=== PATIENT | female | born 1955 | race African-American/Black ===

== ENCOUNTER 2016-04-23 13:35 | Inpatient (IN) | payer OTHER ==
[2016-04-23 13:46] VITALS: TEMP 98.3; BMI 22.8
[2016-04-23] MEDS ORDERED: LABETALOL HCL 5 MG/1 ML (100MG/20 ML VIAL) IVPUSH ONE (18:22)
[2016-04-23 18:34] LABS: BASOPHIL 0.8 % (0-2.0); EOSINOPHIL 4.7 % (0-4.5); MCHC 33.3 g/dl (32.0-36.0); MEAN PLT VOLUME 9.4 fl (7.5-11.1); NEUTROPHILS 28.9 % (42.8-82.8); PLATELET COUNT 194 K/MM3 (134-434); RDW 16.2 % (11.6-15.6); WHITE BLOOD COUNT 6.5 K/mm3 (4.0-10.0)
--- NOTE | 2016-04-23 18:34 | PDOC ---
History of Present Illness - General Chief Complaint: Headache Stated Complaint: HEADACHE Time Seen by Provider: 04/23/16 18:10 - History of Present Illness Initial Comments: 04/23/16 19:24 the patient is a 61-year-old female with a past medical history of hypertension presenting to the emergency room today complaining of headache. Triage reports the patient's blood pressure of 210/120. Patient states that her headache has been going on for 3 days now. It is getting worse in intensity. She rates the pain a 10 out of 10. The pain is located in the right hemisphere. The pain does not radiate. She describes the pain as a dull constant pressure.Patient states she's been having similar episodes of headache over the past 3 months. She's been seeing her primary care physician for this issue. Pt. is compliant with her blood pressure medication. Patient also admits to lightheadedness. Denies photophobia, photophobia, little dizziness,weakness, fevers chills, cough, rhinorrhea, chest pain, palpitations, edema, shortness of breath, nausea, vomiting, diarrhea. Past History - Past Medical History Allergies/Adverse Reactions: Allergies Allergy/AdvReac Type Severity Reaction Status Date / Time No Known Allergies Allergy Verified 03/04/16 20:45 Home Medications: Ambulatory Orders Nadolol 20 mg PO DAILY 02/06/16 HTN: Yes Hypercholesterolemia: Yes Suicide Attempt (Hx): No - Immunization History Immunization Up to Date: Yes - Psycho/Social/Smoking Cessation Hx Anxiety: No Suicidal Ideation: No Smoking History: Never smoked Hx Alcohol Use: No Drug/Substance Use Hx: No Substance Use Type: None *Physical Exam - Vital Signs Last Vital Signs Temp Pulse Resp BP Pulse Ox 98.3 F 66 16 198/104 97 04/23/16 13:43 04/23/16 17:37 04/23/16 17:37 04/23/16 17:37 04/23/16 17:37 - Physical Exam Comments: 04/23/16 19:29 GENERAL: Well developed, well nourished. Awake and alert. No acute distress. HEENT: Normocephalic, atraumatic. PERRLA, EOMI. No conjunctival pallor. Sclera are non- icteric. Moist mucous membranes. Oropharynx is clear. NECK: Supple. Full ROM. No JVD. Carotid pulses 2+ and symmetric, without bruits. No thyromegaly. No lymphadenopathy. CARDIOVASCULAR: Regular rate and rhythm. No murmurs, rubs, or gallops. Distal pulses are 2+ and symmetric. PULMONARY: No evidence of respiratory distress. Lungs clear to auscultation bilaterally. No wheezing, rales or rhonchi. ABDOMINAL: Soft. Non-tender. Non-distended. No rebound or guarding. No organomegaly. Normoactive bowel sounds. MUSCULOSKELETAL Normal range of motion at all joints. No bony deformities or tenderness. No CVA tenderness. EXTREMITIES: No cyanosis. No clubbing. No edema. No calf tenderness. SKIN: Warm and dry. Normal capillary refill. No rashes. No jaundice. NEUROLOGICAL: Alert, awake, appropriate. Cranial nerves 2-12 intact. No deficits to light touch and temperature in face, upper extremities and lower extremities. No motor deficits in the in face, upper extremities and lower extremities. Normoreflexic in the upper and lower extremities. Normal speech. Toes are down- going bilaterally. Gait is normal without ataxia. Point to point movement intact , negative rhombergs sign. PSYCHIATRIC: Cooperative. Good eye contact. Appropriate mood and affect. ED Treatment Course - LABORATORY CBC & Chemistry Diagram: 04/23/16 18:27 04/23/16 18:27 Medical Decision Making - Medical Decision Making 04/23/16 18:30 patient is a 61-year-old female with past medical history of hypertension presenting with headache. The patient's blood pressure was markedly elevated at presentation. We will order basic labs EKG telemetry to monitor blood pressure Pulse rate is 66. We will give IV labetalol for blood pressure management. Once blood pressure is controlled will send patient for CT scan. Less likely meningitis as this issue has been occuring for months, the pt is afelbrile, as well as lack of kernigs and brudinski signs. 1. CBC CMP AND UA for infection 2. EKG and telemetry for monitoring ofpulse and to look for possible arrhythmia. 3. Will order CThead without contrast to evaluate for bleed. we'll reevaluate 04/23/16 18:50 IV labetalol was administered. Repeat blood pressure was 150/78. Patient reports headache is now a 6 out of 10. Patient is feeling better. We'll continue to monitor. 04/23/16 19:45 Pt was signed out or BILLY thomas. Case was discussed. CT results and monitor blood pressure then dispo. *DC/Admit/Observation/Transfer Diagnosis at time of Disposition: Headache Qualifiers: Headache type: unspecified Headache chronicity pattern: chronic headache Intractability: not intractable Qualified Code(s): R51 - Headache High blood pressure Qualifiers: Hypertension type: essential hypertension Qualified Code(s): I10 - Essential ( primary) hypertension - Discharge Dispostion Disposition: HOME Condition at time of disposition: Stable Admit: No
[2016-04-23] MEDS ORDERED: LABETALOL HCL 5 MG/1 ML (200MG/40ML VIAL) IVPB ONE (18:41)
--- NOTE | 2016-04-23 19:00 | PDOC ---
*Physical Exam - Vital Signs Last Vital Signs Temp Pulse Resp BP Pulse Ox 98.3 F 61 18 150/72 98 04/23/16 18:46 04/23/16 18:52 04/23/16 18:52 04/23/16 18:52 04/23/16 18:52 Heart Score/ECG Review - ECG Impressions Comment:: 04/23/16 18:59 Twelve-lead EKG was performed and reviewed by me. There is normal sinus rhythm with a normal rate. Rate of 66 LVH Nonspecific T wave abnormality ED Treatment Course - LABORATORY CBC & Chemistry Diagram: 04/23/16 18:27 04/23/16 18:27 - Medications Given in the ED: ED Medications Discontinued Medications Generic Name Dose Route Start Last Admin Trade Name Freq PRN Reason Stop Dose Admin Labetalol HCl 20 mg 04/23/16 18:22 04/23/16 18:44 Normodyne Injection - IVPUSH 04/23/16 18:23 20 mg ONCE ONE Administration Medical Decision Making - Medical Decision Making 04/23/16 19:00 61y F hx of htn, presents with headache, it was gradual onset x 3 days that is located on the right described as pressure like, and nonradiating that is similar in nature to previous headaches without associated vision changes, photophobia, n/v, neck stiffness. Pts exam is unremarkable. and pts headache was improved significantly during her stay in the ER. Awaiting diagnostics, if pt feeling improved will dc the pt with pmd fu The patient was seen and evaluated in conjunction with ANANTH Smith under my direct supervision, ancillary studies were reviewed. I independently interviewed and evaluated the patient and I agree with the plan as outlined by ANANTH Smith. *DC/Admit/Observation/Transfer Diagnosis at time of Disposition: Headache, High blood pressure - Discharge Dispostion Disposition: HOME Condition at time of disposition: Stable
[2016-04-23 19:11] LABS: ALBUMIN 4.2 g/dl (3.4-5.0); ALK PHOS 63 U/L (45-117); ANION GAP 6 (8-16); BILIRUBIN,TOTAL 0.7 mg/dL (0.2-1.0); CALCIUM 9.6 mg/dL (8.5-10.1); CO2 30 mmol/L (21-32); CREATININE 0.8 mg/dL (0.55-1.02); GLUCOSE,RANDOM 100 mg/dL (74-106); SGOT/AST 27 U/L (15-37); SGPT/ALT 24 U/L (12-78); TOT PROT 8.1 g/dl (6.4-8.2)
[2016-04-23 19:14] LABS: TROPONIN I < 0.02 ng/ml (0.00-0.05)
[2016-04-23 19:35] LABS: URINE APPEARANCE CLEAR; URINE BILIRUBIN NEGATIVE (NEGATIVE); URINE BLOOD 1+ (NEGATIVE); URINE COLOR COLORLESS; URINE GLUCOSE (UA) NEGATIVE (NEGATIVE); URINE KETONE NEGATIVE (NEGATIVE); URINE LEUK ESTERASE NEGATIVE (NEGATIVE); URINE NITRITE NEGATIVE (NEGATIVE); URINE PROTEIN NEGATIVE (NEGATIVE); URINE UROBILINOGEN NEGATIVE E.U./dl (0.2-1.0)
[2016-04-23 19:40] LABS: URINE WBC 1 /hpf (3-5)
[2016-04-23 20:18] VITALS: BP 141/85; PULSE 60
--- NOTE | 2016-04-23 20:37 | PDOC ---
*Physical Exam - Vital Signs Last Vital Signs Temp Pulse Resp BP Pulse Ox 98.3 F 60 18 141/85 97 04/23/16 18:46 04/23/16 20:17 04/23/16 20:17 04/23/16 20:17 04/23/16 20:17 ED Treatment Course - LABORATORY CBC & Chemistry Diagram: 04/23/16 18:27 04/23/16 18:27 - ADDITIONAL ORDERS Additional order review: Laboratory Results 04/23/16 04/23/16 04/23/16 19:00 18:27 18:27 Sodium 140 Potassium 4.6 Chloride 104 Carbon Dioxide 30 Anion Gap 6 L BUN 17 Creatinine 0.8 Creat Clearance w eGFR > 60 Random Glucose 100 D Calcium 9.6 Total Bilirubin 0.7 AST 27 ALT 24 Alkaline Phosphatase 63 Creatine Kinase 314 H D CK-MB (CK-2) 2.464 Troponin I < 0.02 Total Protein 8.1 Albumin 4.2 Urine Color Colorless Urine Appearance Clear Urine pH 7.0 D Ur Specific [place] 1.003 Urine Protein Negative Urine Glucose (UA) Negative Urine Ketones Negative Urine Blood 1+ H Urine Nitrite Negative Urine Bilirubin Negative Urine Urobilinogen Negative Ur Leukocyte Esterase Negative Urine RBC None Urine WBC 1 Ur Epithelial Cells Rare 04/23/16 18:27 RBC 4.88 MCV 87.0 MCHC 33.3 RDW 16.2 H MPV 9.4 D Neutrophils % 28.9 L D Lymphocytes % 57.4 H D Monocytes % 8.2 Eosinophils % 4.7 H D Basophils % 0.8 D - Medications Given in the ED: ED Medications Discontinued Medications Generic Name Dose Route Start Last Admin Trade Name Sara PRN Reason Stop Dose Admin Labetalol HCl 20 mg 04/23/16 18:22 04/23/16 18:44 Normodyne Injection - IVPUSH 04/23/16 18:23 20 mg ONCE ONE Administration Medical Decision Making - Medical Decision Making 04/23/16 20:35 patient endorsed to me by people PA to follow CT scan, pain, and disposition. Patient seen and evaluated still complains of 5/10. I will give Toradol and reglan. Head CT reviewed and is negative for pathology 04/23/16 22:33 patient's pain is resolved I will discharge her and instructions follow-up with PMD for continued management I discussed the physical exam findings, ancillary test results and final diagnoses with the patient. I answered all of the patient's questions. The patient was satisfied with the care received and felt comfortable with the discharge plan and treatment plan. The Patient agrees to follow up with the primary care physician within 24-72 hours. *DC/Admit/Observation/Transfer Diagnosis at time of Disposition: Headache Qualifiers: Headache type: unspecified Headache chronicity pattern: chronic headache Intractability: not intractable Qualified Code(s): R51 - Headache High blood pressure Qualifiers: Hypertension type: essential hypertension Qualified Code(s): I10 - Essential ( primary) hypertension Diagnosis at time of Disposition: (Ruled Out): Acute pyelonephritis, Renal colic on right side - Discharge Dispostion Condition at time of disposition: Stable Admit: No - Referrals Referrals: Nelda Rodarte MD [Primary Care Provider] - - Patient Instructions Printed Discharge Instructions: DI for Migraine Additional Instructions: Your Discharge Instructions: You must call primary care physician within 24 hours to arrange follow-up. Return to the Emergency Department with any new, persistent or worsening symptoms, for fever, chills, SOB, dizziness or any other concerning changes that may occur.
[2016-04-23] MEDS ORDERED: SODIUM CHLORIDE 0.9% 1000 ML INFUS.BAG IV ONE (20:38)
[2016-04-23] MEDS ORDERED: METOCLOPRAMIDE HCL INJECTION 10 MG/2 ML VIAL IVPB ONE (20:38)
[2016-04-23] MEDS ORDERED: KETOROLAC TROMETHAMINE 15 MG/ML VIAL IVPUSH ONE (20:38)
[2016-04-23] MEDS ORDERED: METOCLOPRAMIDE HCL INJECTION 10 MG/2 ML VIAL ONE (20:44)
[2016-04-23] MEDS ORDERED: KETOROLAC TROMETHAMINE 15 MG/ML VIAL ONE (20:44)
--- NOTE | 2016-04-25 16:15 | EKG ---
Test Reason : Blood Pressure : / mmHG Vent. Rate : 065 BPM Atrial Rate : 065 BPM P-R Int : 134 ms QRS Dur : 082 ms QT Int : 396 ms P-R-T Axes : 054 017 -09 degrees QTc Int : 411 ms NORMAL SINUS RHYTHM MODERATE VOLTAGE CRITERIA FOR LVH, MAY BE NORMAL VARIANT NONSPECIFIC T WAVE ABNORMALITY ABNORMAL ECG WHEN COMPARED WITH ECG OF 04-MAR-2016 22:09, NO SIGNIFICANT CHANGE WAS FOUND Confirmed by AYUSH HERNANDEZ, SUNSHINE ([id number]) on 04/25/2016 4:15:37 PM Referred By: Confirmed By:SUNSHINE PEACOCK MD
== END 2016-04-24 00:08 | disposition home or self-care (01) | DRG 199 ==
LOC: JER 13:35 → JERBED 22:37 → J5S 04-24 09:45 → JERBED 04-24 09:45
PROVIDERS: ADMIT Internal Medicine; ATTEND Internal Medicine
DX: I10 Essential (primary) hypertension (principal); R51 Headache; N10 Acute pyelonephritis; N23 Unspecified renal colic
CPT/HCPCS: 36415; 70450-TC; 71010-TC; 80053; 81003; 81015; 82550; 82553; 84484; 85025; 93005; 93010; 99284-25

== ENCOUNTER 2019-03-10 11:22 | Emergency (ER) | payer OTHER ==
[2019-03-10 11:27] VITALS: BP 174/97; PULSE 93; TEMP 98.6; BMI 18.0
[2019-03-10] MEDS ORDERED: CODEINE SO4 30 MG TABLET PO ONE (12:07)
--- NOTE | 2019-03-10 12:11 | PDOC ---
History of Present Illness - General Chief Complaint: Respiratory Stated Complaint: COLD SYMPTOMS Time Seen by Provider: 03/10/19 11:41 History Source: Patient Exam Limitations: No Limitations - History of Present Illness Initial Comments: 03/10/19 12:08 HISTORY OF PRESENT ILLNESS: This is a 64-year-old woman with past medical history of hypertension who presents emergency department for evaluation of 4 days of dry nonproductive cough and subjective fevers. Patient reports increased abdominal pain which worsens with coughing which she describes as a soreness while at rest. Pain is currently 6/10. Patient reports the pain is bandlike extending to her lower back. She denies any chest pain or shortness of breath. No recent travel or sick contacts. PAST MEDICAL HISTORY: Hypertension SURGICAL HISTORY: Denies ALLERGIES: Pneumococcal vaccine, influenza vaccine REVIEW OF SYSTEMS General/Constitutional: Denies fever or chills. Denies weakness, weight change. HEENT: Denies change in vision. Denies ear pain or discharge. Denies sore throat. Cardiovascular: Denies chest pain or shortness of breath. Respiratory: See HPI Gastrointestinal: Denies nausea, vomiting, diarrhea or constipation. Denies rectal bleeding. Genitourinary: Denies dysuria, frequency, or change in urination. Musculoskeletal: Denies joint or muscle swelling or pain. Denies neck or back pain. Skin and breasts: Denies rash or easy bruising. Neurologic: Denies headache, vertigo, loss of consciousness, or loss of sensation. Psychiatric: Denies depression or anxiety. Endocrine: Denies increased thirst. Denies abnormal weight change. Hematologic/Lymphatic: Denies anemia, easy bleeding, or history of blood clots. Allergic/Immunologic: Denies hives or skin allergy. Denies latex allergy. PHYSICAL EXAM General Appearance: Well-appearing, appropriately dressed. No apparent distress , no intoxication. HEENT: EOMI, PERRLA, normal ENT inspection, normal voice, TMs normal, pharynx normal. No conjunctival pallor. No photophobia, scleral icterus. Neck: Supple. Trachea midline. No tenderness, rigidity, carotid bruit, stridor , lymphadenopathy, or thyromegaly. Respiratory/Chest: Lungs CTAB. No shortness of breath, chest tenderness, respiratory distress, accessory muscle use. No crackles, rales, rhonchi, stridor , wheezing, dullness Cardiovascular: RRR. S1, S2. No JVD, murmur, bradycardia, tachycardia. Vascular Pulses: Dorsalis-Pedis (R): 2+, Dorsalis-Pedis (L): 2+ Gastrointestinal/Abdominal: Normal bowel sounds. Abdomen soft, non-distended. No tenderness or rebound tenderness. No organomegaly, pulsatile mass, guarding, hernia, hepatomegaly, splenomegaly. Musculoskeletal/Extremities: Normal inspection. FROM of all extremities, normal capillary refill. Pelvis Stable. No CVA tenderness. No tenderness to extremities, pedal edema, swelling, erythema or deformity. Integumentary: Appropriate color, dry, warm. No cyanosis, erythema, jaundice or rash Past History - Past Medical History Allergies/Adverse Reactions: Allergies Allergy/AdvReac Type Severity Reaction Status Date / Time No Known Allergies Allergy Verified 03/10/19 11:27 Home Medications: Ambulatory Orders Nifedipine 20 mg PO DAILY 10/03/16 Tropicamide 1% Eye Drops 1 drop OD DAILY 10/03/16 Vitamin D3 - 5,000 iu PO DAILY 10/03/16 Benzonatate [Tessalon Pearls -] 200 mg PO TID #42 cap 03/10/19 Cephalexin Monohydrate [Keflex -] 500 mg PO Q8H #30 capsule 03/10/19 COPD: No HTN: Yes Hypercholesterolemia: Yes - Immunization History Immunization Up to Date: Yes - Psycho Social/Smoking Cessation Hx Smoking History: Never smoked Hx Alcohol Use: No Drug/Substance Use Hx: No Substance Use Type: None Respiratory Specific PMHX - Complaint Specific PMHX Hx Bronchitis: No Hx Pneumonia: No Hx Pulmonary Embolus: No Hx TB (Tuberculosis): No *Physical Exam - Vital Signs Last Vital Signs Temp Pulse Resp BP Pulse Ox 98.6 F 93 H 18 174/97 H 98 03/10/19 11:26 03/10/19 11:26 03/10/19 11:26 03/10/19 11:26 03/10/19 11:26 Medical Decision Making - Medical Decision Making 03/10/19 12:10 A/P: 64-year-old woman with 4 days of nonproductive dry cough Respirations even and unlabored Lungs clear to auscultation bilaterally Skin moist to abdomen and lower back No CVA tenderness No abdominal tenderness noted This is likely a respiratory infection but as patient is outside the 3-day window I will defer influenza testing at this time. Chest x-ray Urinalysis, urine culture codeine 30 mg orally now Reassess 03/10/19 12:40 Chest x-ray as read by me: Veronique sharp. Cardiac silhouette is within normal limits. Lung eduardo clear without signs of infiltration or consolidation noted. Urinalysis notable for 1+ leuk esterase and 11 WBCs on high-power field. This patient does have some lower back pain which is most likely musculoskeletal, I will treat with Keflex 500 3 times daily for 10 days. Patient will be given a prescription for Tessalon Perles for her cough. I discussed the physical exam findings, ancillary test results and final diagnoses with the patient. I answered all of the patient's questions. The patient was satisfied with the care received and felt comfortable with the discharge plan and treatment plan. The patient will call their primary care physician within 24 hours to arrange follow-up and will return to the Emergency Department with any new, persistent or worsening symptoms. 03/10/19 12:43 Discharge - Discharge Information Problems reviewed: Yes Clinical Impression/Diagnosis: Cough UTI (urinary tract infection) Qualifiers: Urinary tract infection type: acute pyelonephritis Qualified Code(s): N10 - Acute pyelonephritis Condition: Stable Disposition: HOME - Admission No - Additional Discharge Information Prescriptions: Benzonatate [Tessalon Pearls -] 200 mg PO TID #42 cap Cephalexin Monohydrate [Keflex -] 500 mg PO Q8H #30 capsule - Follow up/Referral - Patient Discharge Instructions Additional Instructions: Rest, drink lots of fluids: Teas, water, soups Avoid contact with others until fevers and symptoms resolved Lots of handwashing and good hygiene Continue [id number] medications for symptomatic relief Tylenol or Motrin for fever and pain Continue all of antibiotics until completed Followup with private physician in one week for repeat urinalysis/reevaluation Return to emergency department for worsened symptoms, fevers, dehydration - Post Discharge Activity
[2019-03-10 12:35] LABS: EPI CELLS 8.5 /HPF (0-5/HPF); HYALINE CASTS 9 /lpf (0-8); URINE APPEARANCE CLOUDY; URINE BACTERIA 114.9 /hpf (NEGATIVE); URINE BILIRUBIN NEGATIVE (NEGATIVE); URINE COLOR YELLOW; URINE GLUCOSE (UA) NEGATIVE (NEGATIVE); URINE KETONE NEGATIVE (NEGATIVE); URINE LEUK ESTERASE 1+ (NEGATIVE); URINE NITRITE NEGATIVE (NEGATIVE); URINE PROTEIN 1+ (NEGATIVE); URINE RBC 1 /hpf (0-4); URINE UROBILINOGEN 0.2 mg/dL (0.2-1.0); URINE WBC 11 /hpf (0-5)
== END 2019-03-10 12:51 | disposition home or self-care (01) ==
LOC: JER 11:22 → JERFT 11:22
DX: N39.0 Urinary tract infection, site not specified (principal); R05 Cough; I10 Essential (primary) hypertension; E78.00 Pure hypercholesterolemia, unspecified
CPT/HCPCS: 71046-TC-FY; 81003; 87077; 87086; 99281-25